=== PATIENT | male | born 1985 | race Caucasian/White ===

== ENCOUNTER 2018-12-30 13:11 | Day surgery (SDC) | payer BC ==
[2018-12-30] VITALS (12 sets, daily range): BP systolic 104–116; BP diastolic 55–78; PULSE 64–71; RESP 12–20; Ht 180.3 cm; Wt 73.6 kg
[~2018-12-30] VITALS: Ht 180.3 cm; Wt 73.6 kg
[~2018-12-30 13:11] MED LIST: CEFAZOLIN 2 GM/50 ML (PMX) 50 ML IVPB ONE; LACTATED RINGER'S 1,000 ML IV SCH; SEVOFLURANE 15 MIN ONE
[2018-12-30] MEDS ORDERED: BUPIVACAINE 0.5% (SDV) 30 ML INJ ONE (14:40)
[2018-12-30] MEDS ORDERED: LIDOCAINE 1% (MPF) 30 ML INJ ONE (14:40)
--- NOTE | 2018-12-30 15:30 | PREAC ---
Date/Time of Note Date/Time of Note DATE: 12/30/18 TIME: 15:28 Anesthesia Eval and Record Evaluation Time Pre-Procedure Interview DATE: 12/30/18 TIME: 15:28 Age 33 Sex male NPO: 8 hrs Preoperative diagnosis Recurrent dorsal ganglion cyst, left wrist Planned procedure Revision excision of ganglion cyst Past Medical History Past Medical History: None Surgery & Anesthesia Issues No known issue Meds Anticoagulation: No Beta Bar within 24 hr: No Reason Beta Bar not given: Pt. not on B-Bar No Active Prescriptions or Reported Meds Current Medications Lactated Ringer's 1,000 ml @ 25 mls/hr Q24H IV ; Start 12/30/18 at 12:00; Stop 01/01/19 at 03:59 Meds reviewed: Yes Allergies Coded Allergies: No Known Allergy (Unverified , 12/30/18) Allergies Reviewed: Yes Labs/Studies Labs Reviewed: Reviewed by anesthesiologist test: N/A Pre-procedure Exam Last vitals Vital Signs Date Temp Pulse Resp B/P (MAP) Pulse Ox O2 O2 Flow FiO2 Time Delivery Rate 12/30/18 98.2 66 18 106/55 96 Room Air 14:10 (72) Airway: Adequate mouth opening Mallampati: Mallampati I Teeth: Normal Lung: Normal Heart: Normal ASA Physical Status ASA physical status: 1 Emergency: None Planned Anesthetic General/MAC: LMA, MAC Planned Pain Management Parenteral pain med Pre-operative Attestations Prior to commencing anesthesia and surgery, the patient was re-evaluated, there was verification of: *The patient's identity *The results of appropriate recent lab work and preoperative vital signs *The above evaluation not changing prior to induction *Anesthetic plan, risk benefits, alternative and complications discussed with patient/family; questions answered; patient/family understands, accepts and wishes to proceed. REMI GRIMES MD December 30, 2018 15:30
[2018-12-30] MEDS ORDERED: PROPOFOL 20 ML ONE (15:45)
[2018-12-30] MEDS ORDERED: CEFAZOLIN 1 GM INJ ONE (15:45)
--- NOTE | 2018-12-30 15:50 | HPN ---
Date/Time of Note Date/Time of Note DATE: 12/30/18 TIME: 15:50 Interval H&P Admission Note Pt. seen H&P reviewed: No system changes ADRYAN TROTTER December 30, 2018 15:50
[2018-12-30] MEDS ORDERED: ONDANSETRON 4 MG INJ ONE (16:23)
[2018-12-30] MEDS ORDERED: LIDOCAINE 2% (SDV) 5 ML INJ ONE (16:23)
[2018-12-30] MEDS ORDERED: MEPERIDINE 25 MG INJ IV PRN (17:00)
[2018-12-30] MEDS ORDERED: FENTAnyl 50 MCG/ML VIAL IV PRN ×3 (17:00)
[2018-12-30] MEDS ORDERED: ONDANSETRON 4 MG INJ IV PRN (17:00)
[2018-12-30] MEDS ORDERED: OXYCODONE/ACETAMINOPHEN (5/325) TAB PO PRN ×2 (17:00)
[2018-12-30] MEDS ORDERED: MIDAZOLAM 1 MG/ML 2 ML INJ IV PRN (17:00)
[2018-12-30] MEDS ORDERED: DIPHENHYDRAMINE 50 MG INJ IV PRN (17:00)
[2018-12-30] MEDS ORDERED: METOCLOPRAMIDE 10 MG INJ IV PRN (17:00)
--- NOTE | 2018-12-30 17:27 | PAC ---
Date/Time of Note Date/Time of Note DATE: 12/30/18 TIME: 17:26 Post-Anesthesia Notes Post-Anesthesia Note Last documented vital signs Vital Signs Date Temp Pulse Resp B/P (MAP) Pulse Ox O2 O2 Flow FiO2 Time Delivery Rate 12/30/18 64 17 113/66 98 Room Air 17:15 (82) 12/30/18 98.6 16:48 Activity: WNL Respiratory function: WNL Cardiovascular function: WNL Mental status: Baseline Pain reasonably controlled: Yes Hydration appropriate: Yes Nausea/Vomiting absent: Yes Comments BT: 98.6 REMI GRIMES MD December 30, 2018 17:27
--- NOTE | 2018-12-30 17:54 | OPPN ---
Date/Time of Note Date/Time of Note DATE: 12/30/18 TIME: 17:53 Operative Report Preoperative Diagnosis Left wrist recurrent dorsal ganglion cyst Postoperative Diagnosis Left wrist recurrent dorsal ganglion cyst Operation/Procedure Performed Left wrist recurrent dorsal ganglion cyst excision Surgeon see signature line doctor's assistant none Anesthesia: general Estimated blood loss: 0 - 10 ml's Transfusion Required none Specimen none Grafts/Implants none Complications none ADRYAN TROTTER December 30, 2018 17:54
--- NOTE | 2018-12-30 19:42 | OPR ---
DATE OF OPERATION: 12/30/2018 SURGEON: Rashad Lua MD ANESTHESIA: General. PREOPERATIVE DIAGNOSIS: Recurrent left wrist dorsal ganglion cyst. POSTOPERATIVE DIAGNOSIS: Recurrent left wrist dorsal ganglion cyst. PROCEDURE: Revision excision of left wrist recurrent dorsal ganglion cyst. OPERATIVE FINDINGS: Left wrist dorsal ganglion cyst arising from the scapholunate interval with scar tissue formation. INDICATION FOR PROCEDURE: A 33-year-old male with a previous left wrist surgery for excision of dorsal wrist ganglion. The cyst recurred and the patient was seen in clinic. He elected to proceed with surgical intervention, understanding risks and benefits. DESCRIPTION OF PROCEDURE: The patient was seen in the preoperative area and all further questions were answered. Again, he gave informed consent, understanding the risks and benefits. He was taken to the operative suite and placed in supine position. He was placed under general anesthesia and tourniquet placed in the left upper extremity. Left upper extremity was prepped with ChloraPrep stick and draped in usual sterile fashion. Esmarch bandage was used to exsanguinate the extremity and tourniquet inflated to 250 mmHg. The previous transverse incision was utilized with sharp dissection carried down through skin and subcutaneous tissue. The second, third and fourth dorsal compartments were incised and retracted radially and ulnarly. The cyst was visualized and there was scar tissue formation leading down to the joint capsule. The cyst was dissected down using Bovie electrocautery down below the joint capsule to the scapholunate interval. The cyst was peeled off the scapholunate ligament, which was intact. The wound was copiously irrigated and skin closed with 5-0 nylon. Xeroform placed over the wound followed by sterile gauze, Webril, and a short arm splint. Tourniquet deflated after 16 minutes. The patient was awakened from anesthesia. He was taken to the postoperative suite in stable condition, tolerated procedure well without complication. SPECIMENS: None. ESTIMATED BLOOD LOSS: 5 mL. COUNTS: Sponge, instrument, needle counts correct. TOURNIQUET TIME: 16 minutes. CONDITION ON DISCHARGE: Stable. The patient was given a nonrefillable 5-day prescription for pain medications for surgery today. Dictated By: RASHAD McgeeDN/JONELLE Conf#: [id number] [facility]#: [id number] [facility]
== END 2018-12-30 18:13 | disposition home or self-care (01) ==
LOC: SDS 13:11
PROVIDERS: ATTEND Orthopaedic Surgery Hand Surgery
DX: M67.432 Ganglion, left wrist (principal)
CPT/HCPCS: 25112; J0690; J2405; Z7512; Z7610